=== PATIENT | male | born 1975 | race Caucasian/White ===

== ENCOUNTER → 2017-07-31 | Outpatient (REF) | payer OTHER ==
[2017-07-31 19:02] LABS: ALBUMIN 3.9 GM/DL (3.2-5.2); ALKALINE PHOSPHATASE 55 U/L (45-117); ALT/SGPT 21 U/L (12-78); AMYLASE 58 U/L (25-115); ANION GAP 7 MEQ/L (8-16); AST/SGOT 12 U/L (15-37); BILIRUBIN,TOTAL 0.6 MG/DL (0.2-1.0); BLOOD UREA NITROGEN 14 MG/DL (7-18); CALCIUM LEVEL 8.5 MG/DL (8.5-10.1); CARBON DIOXIDE LEVEL 30 MEQ/L (21-32); CHLORIDE LEVEL 108 MEQ/L (98-107); CREATININE FOR GFR 1.08 MG/DL (0.70-1.30); GLOMERULAR FILTRATION RATE > 60.0 (>60); GLUCOSE, FASTING 86 MG/DL (70-105); POTASSIUM SERUM 4.4 MEQ/L (3.5-5.1); SODIUM LEVEL 145 MEQ/L (136-145); TOTAL PROTEIN 7.8 GM/DL (6.4-8.2)
[2017-07-31 19:24] LABS: BASO % 0.5 % (0.0-1.0); EOS # 0.1 K/mm3 (0.0-0.50); EOS % 0.9 % (0.0-3.0); LARGE UNSTAINED CELL # 0.1 K/mm3 (0.0-0.4); LARGE UNSTAINED CELL % 1.1 % (0.0-4.0); LYMPH # 1.7 K/mm3 (1.5-4.5); LYMPH % 21.3 % (24.0-44.0); MEAN CORPUSCULAR HEMOGLOBIN 32.2 pg (27.0-33.0); MEAN CORPUSCULAR HGB CONC 35.3 g/dl (32.0-36.5); MEAN CORPUSCULAR VOLUME 91.3 fl (80.0-96.0); MONO # 0.3 K/mm3 (0.0-0.8); MONO % 4.2 % (0.0-5.0); NEUTROPHILS # 5.5 K/mm3 (1.8-7.7); NEUTROPHILS % 71.9 % (36.0-66.0); PLATELET COUNT, AUTOMATED 254 k/mm3 (150-450); RED CELL DISTRIBUTION WIDTH 12.7 % (11.5-14.5); WHITE BLOOD COUNT 7.7 K/mm3 (4.0-10.0)
== END ==
LOC: M LAB REF 14:33
PROVIDERS: ATTEND Physician Assistant Medical
DX: A08.4 Viral intestinal infection, unspecified (principal)

== ENCOUNTER → 2017-08-01 | Outpatient (REF) | payer OTHER | LOC: M LAB REF 14:13 | PROVIDERS: ATTEND Physician Assistant Medical | DX: A08.4 Viral intestinal infection, unspecified (principal) ==

== ENCOUNTER → 2017-08-05 | Outpatient (REF) | payer OTHER | LOC: M LAB REF 12:32 | PROVIDERS: ATTEND Nurse Practitioner Adult Health | DX: N50.819 Testicular pain, unspecified (principal) ==

== ENCOUNTER → 2017-08-07 | Outpatient (CLI) | payer OTHER ==
[2017-08-11 00:06] LABS: MUMPS VIRUS IgM ANTIBODY <0.80 AU (0.00-0.79)
== END ==
LOC: M LAB 10:57
PROVIDERS: ATTEND Nurse Practitioner Adult Health
DX: N45.2 Orchitis (principal)

== ENCOUNTER → 2021-05-20 | Outpatient (CLI) | payer OTHER ==
--- NOTE | 2021-05-20 12:18 | REP ---
INDICATION: CKD 3A. COMPARISON: None. FINDINGS: Multiple ultrasonographic images of the right kidney show the right kidney to measure 9.7 x 5.5 x 4.2 cm. The renal cortical echotexture is mildly diffusely increased. There are no masses. There is good corticomedullary differentiation. There is no hydronephrosis. There are no perinephric fluid collections. Multiple ultrasonographic images of the left kidney show the left kidney to measure 11.3 x 5.3 x 5.6 cm. The renal cortical echotexture is mildly diffusely increased. There are no masses. There is good corticomedullary differentiation. There is no hydronephrosis. There are no perinephric fluid collections. Doppler of the urinary bladder failed to identify uro jet phenomena on either side. IMPRESSION: Mildly diffusely increased renal cortical echoes bilaterally consistent with the patient's known renal disease. <Electronically signed by Benitez Lofton > 05/20/21 [id number]
== END ==
LOC: M RAD 11:33
PROVIDERS: ATTEND Nurse Practitioner Adult Health
DX: N18.31 Chronic kidney disease, stage 3a (principal)

== ENCOUNTER → 2021-12-09 | Outpatient (REF) | payer OTHER ==
[2021-12-09 15:00] LABS: TOTAL PROTEIN,RANDOM URINE 19.8 MG/DL (0.0-12.0)
== END ==
LOC: M LAB REF 13:15
PROVIDERS: ATTEND Internal Medicine Nephrology
DX: N18.31 Chronic kidney disease, stage 3a (principal); R80.9 Proteinuria, unspecified

== ENCOUNTER 2022-10-28 18:50 | Emergency (ER) | payer OTHER ==
[~2022-10-28] VITALS: Ht 177.8 cm; Wt 87.0 kg
[2022-10-28 18:53] VITALS: BP 152/98
[2022-10-28] MEDS ORDERED: BUSP10TA (19:15)
[2022-10-28] MEDS ORDERED: BUPR300T92 (19:15)
== END 2022-10-28 20:48 | disposition left against medical advice (07) ==
LOC: M ED 18:50
DX: Z53.21 Procedure and treatment not carried out due to patient leaving prior to being seen by health care provider (principal)

== ENCOUNTER → 2022-12-29 | Outpatient (REF) | payer OTHER ==
[~2022-12-29] MED LIST: BUPR300T92; BUSP10TA
[2022-12-30 12:45] LABS: TOTAL VOLUME, URINE 1400 ML
[2022-12-30 12:50] LABS: CHLORIDE 24 HR URINE 186 MMOL/24H (110-250); CHLORIDE URINE 133 MMOL/L
[2022-12-31 13:06] LABS: CREATININE, URINE 173.4 MG/DL
[2022-12-31 18:37] LABS: CREATININE 24 HOUR, URINE 2427.6 MG/24HR (950-2500)
== END ==
LOC: M LAB REF 11:47
PROVIDERS: ATTEND Nurse Practitioner Adult Health
DX: N18.31 Chronic kidney disease, stage 3a (principal)

== ENCOUNTER → 2023-02-16 | Outpatient (CLI) | payer OTHER ==
[~2023-02-16] MED LIST changes: +**SFHN** LIDOCAINE 1% MDV 20ML VIAL ONE; +ISOVUE-300 61% 100ML VIAL ONE; +PROHANCE 279.3MG/ML 5ML VIAL ONE
== END ==
LOC: M PLAIMG 14:04
PROVIDERS: ATTEND Orthopaedic Surgery
DX: S43.432A Superior glenoid labrum lesion of left shoulder, initial encounter (principal); X58.XXXA Exposure to other specified factors, initial encounter; Y92.9 Unspecified place or not applicable
CPT/HCPCS: 23350; 73223; 76000; A9576; Q9967

== ENCOUNTER → 2023-07-21 | Outpatient (REF) | payer OTHER ==
[~2023-07-21] MED LIST changes: -**SFHN** LIDOCAINE 1% MDV 20ML VIAL ONE; -ISOVUE-300 61% 100ML VIAL ONE; -PROHANCE 279.3MG/ML 5ML VIAL ONE
== END ==
LOC: M LAB REF 12:07
PROVIDERS: ATTEND Nurse Practitioner Family
DX: N18.31 Chronic kidney disease, stage 3a (principal)

== ENCOUNTER → 2024-11-07 | Outpatient (REF) | payer OTHER ==
[~2024-11-07] MED LIST changes: +BUPR-597; -BUPR300T92
[2024-11-11 04:18] LABS: CYSTATIN C 1.15 mg/L (0.52-1.27)
== END ==
LOC: M LAB REF 11:55
PROVIDERS: ATTEND Nurse Practitioner Family
DX: R53.83 Other fatigue (principal); R68.82 Decreased libido; N18.31 Chronic kidney disease, stage 3a

== ENCOUNTER → 2025-03-09 | Outpatient (REF) | payer OTHER | LOC: M LAB REF 12:12 | PROVIDERS: ATTEND Nurse Practitioner Family | DX: N52.9 Male erectile dysfunction, unspecified (principal); R68.82 Decreased libido; R53.83 Other fatigue ==